=== PATIENT | male | born 1970 | race Caucasian/White ===

== ENCOUNTER 2017-02-27 17:00 | Emergency (ER) | payer MEDICAID, MEDICARE ==
[~2017-02-27] VITALS: Ht 193 cm; Wt 76.0 kg
[~2017-02-27 17:00] MED LIST: CLIN1CAP6 PO
[2017-02-27 17:01] VITALS: BP 117/80; PULSE 104; RESP 16; TEMP 98.6; O2SAT 97
[2017-02-27] MEDS ORDERED: LIDOCAINE HCL 1% 50 ML VIAL INFIL ONE (17:15)
--- NOTE | 2017-02-27 17:18 | PD ---
HPI Chief Complaint: Skin Problem Time Seen by Provider: 17:14 Travel History International Travel<30 days: No Contact w/Intl Traveler<30days: No Traveled to known affect area: No History of Present Illness HPI 46-year-old male presents to the emergency department for evaluation of tender painful lumps to right hand and right lower abdomen. Patient states that the lump on his right hand began 2 days ago and has been getting larger and more painful. States that he is unsure when the lump on his abdomen began, states that he thinks it is an ingrown hair. Denies any discharge or drainage from the sites. States that he has subjective fever yesterday but did not take his temperature. Denies any nausea, vomiting, chills. Denies any history of IV drug use. No other complaints. PFSH Past Medical History Medical History: Denies Significant Hx Diminished Hearing: No Tetanus Vaccination: < 5 Years Past Surgical History Surgical History: No Previous Surgery Social History Alcohol Use: No Tobacco Use: No Substance Use: No Allergies-Medications (Allergen,Severity, Reaction): Coded Allergies: Penicillin (Verified Allergy, Intermediate, rash, 02/27/17) Sulfa (Verified Allergy, Intermediate, RASH, 02/27/17) Reported Meds & Prescriptions Reported Meds & Active Scripts Active Clindamycin (Clindamycin HCl) 150 Mg Cap 300 Mg PO Q6H 10 Days Review of Systems Except as stated in HPI: all other systems reviewed are Neg Physical Exam Narrative GENERAL: Well-nourished and well-developed pleasant patient in no acute distress who is nontoxic appearing. SKIN: Warm and dry. 2 cm in diameter raised fluctuant erythematous mass to dorsal ulnar right hand, no discharge or drainage, no lymphangitis. 1 cm erythematous indurated mass to right lower abdominal wall, no discharge or drainage. No surrounding erythema or warmth. HEAD: Normocephalic and atraumatic. EYES: No injection, drainage, or hyphema noted. PERRLA. EOMI. ENT: No nasal drainage noted. Oropharynx is clear. NECK: Supple and the trachea is midline. CARDIOVASCULAR: Regular rate and rhythm. RESPIRATORY: Breath sounds are equal bilaterally with no accessory muscle use, wheezing, rhonchi, or crackles. GASTROINTESTINAL: Abdomen is soft, non-tender, and nondistended. MUSCULOSKELETAL: No obvious deformities, swelling, cyanosis, or ecchymosis is present throughout the upper and lower extremities. Patient has full range of motion without any signs of neurovascular compromise. NEUROLOGICAL: Awake, alert, and oriented. Normal speech and gait. Cranial nerves are grossly intact. Data Data Last Documented VS Vital Signs Date Time Temp Pulse Resp B/P Pulse Ox O2 Delivery O2 Flow Rate FiO2 02/27/17 17:01 98.6 104 16 117/80 97 Orders Wound Culture And Gram Stain (02/27/17 17:13) Lidocaine 1% Inj (50 Ml) (Xylocaine 1% I (02/27/17 17:15) [facility] Medical Decision Making Medical Screen Exam Complete: Yes Emergency Medical Condition: Yes Differential Diagnosis Abscess versus folliculitis versus cellulitis Narrative Course 46-year-old male presents to the emergency department for evaluation of abscess to right hand and abdominal wall. Patient is afebrile, vital signs are stable. The abscess on his right hand is fluctuant and will be drained. The abscess on his abdomen is hard and indurated and is not amenable to drainage. Patient will be placed on clindamycin. Discussed proper wound care techniques. Advised follow-up with his PCP. Patient verbalizes understanding and agreement with treatment plan. Procedures Procedure Narrative After the risks and benefits were discussed the following procedure was performed: INCISION AND DRAINAGE OF ABSCESS: The area was prepped and was sterilely draped. A subcutaneous wheal of 1 % Xylocaine with a total number 3 mL was used to anesthetize the area. The area was properly anesthetized. A number 11 scalpel was used to make a 1 -cm incision across the area of the abscess. A small amount of purulence was expelled. Cultures were obtained. The abscess was drained an irrigated with normal saline. Sterile dressing applied. Diagnosis Primary Impression: Abscess of right hand Additional Impression: Cutaneous abscess of abdominal wall Referrals: Primary Care Physician Patient Instructions: Abscess (ED), Abscess Incision and Drainage (ED), General Instructions Additional Instructions: Apply warm compresses. Take medication as prescribed with food and a full glass of water. Follow-up with your Primary Care Physician. Return to the ED for any acute worsening of symptoms. Med/Other Pt SpecificInfo: Prescription(s) given Scripts Clindamycin 150 Mg [id number] Mg PO Q6H 10 Days Ref 0 Prov:Alvaro Ferrara MD 02/27/17 Disposition: 01 DISCHARGE HOME Condition: Stable Ivanna Hebert Feb 27, 2017 17:18 Ivanna Hebert Feb 27, 2017 17:18
[2017-02-27] MEDS ORDERED: CLIN1CAP5 PO (17:36)
== END 2017-02-27 17:41 | disposition home or self-care (01) ==
LOC: PHEFT 17:00
DX: L02.511 Cutaneous abscess of right hand (principal); L02.211 Cutaneous abscess of abdominal wall; B95.61 Methicillin susceptible Staphylococcus aureus infection as the cause of diseases classified elsewhere
CPT/HCPCS: 10060; 86403; 87070; 87186

== ENCOUNTER 2017-10-13 19:36 | Emergency (ER) | payer MEDICARE ==
[~2017-10-13] VITALS: Ht 193 cm; Wt 76.6 kg
[~2017-10-13 19:36] MED LIST changes: +CLIN150C14 PO; -CLIN1CAP6 PO
[2017-10-13 19:44] VITALS: BP 106/73; PULSE 110; RESP 16; TEMP 98.7; O2SAT 98
[2017-10-13] MEDS ORDERED: CLIN300C5 PO (20:07)
--- NOTE | 2017-10-13 20:07 | PD ---
HPI Chief Complaint: Bite or Sting Time Seen by Provider: 20:04 Travel History International Travel<30 days: No Contact w/Intl Traveler<30days: No Traveled to known affect area: No History of Present Illness HPI 47-year-old male with no significant medical history presents to emergency department for what he believes are spider bites on his thigh and his left axilla. Patient states he noticed them over the last 3-4 days. He thought that they were initially pimples but then they grew and became more painful. He was able to express purulent drainage from one of them. He did not see any spider or insect. He did not feel a bite. Denies any fever or chills. Denies any other new exposures. No other symptoms to report. PFSH Past Medical History Medical History: Denies Significant Hx Diminished Hearing: No Psychiatric: Yes (Autism) Respiratory: Yes (sinus problems; asthma as child) Tetanus Vaccination: < 5 Years Influenza Vaccination: No Past Surgical History Surgical History: No Previous Surgery Social History Alcohol Use: No Tobacco Use: No Substance Use: No Allergies-Medications (Allergen,Severity, Reaction): Coded Allergies: Sulfa (Sulfonamide Antibiotics) (Verified Allergy, Intermediate, RASH, 10/13/17) penicillin G (Verified Allergy, Intermediate, rash, 10/13/17) Reported Meds & Prescriptions Reported Meds & Active Scripts Active Clindamycin (Clindamycin HCl) 300 Mg Cap 300 Mg PO Q6H 10 Days Clindamycin (Clindamycin HCl) 150 Mg Cap 300 Mg PO Q6H 10 Days Review of Systems Except as stated in HPI: all other systems reviewed are Neg Physical Exam Narrative GENERAL: Well-nourished, well-developed male patient, ambulatory, no acute distress SKIN: Focused skin assessment warm/dry. 2 cm in diameter area of induration on the anterior left thigh proximal to the knee. There is no fluctuation. It is tender to palpate. There is another subcentimeter erythematous papule on the anterior right knee. Erythema, however, extends 10 cm in diameter from this area. It does not encompass the entire left knee. Patient has full flexion and extension of the left knee. There is another subcentimeter papular lesion in the left axilla without any significant erythema or edema. No induration. HEAD: Normocephalic. EYES: No scleral icterus. No injection or drainage. NECK: Supple, trachea midline. No JVD or lymphadenopathy. CARDIOVASCULAR: Tachycardic rate and rhythm without murmurs, gallops, or rubs. RESPIRATORY: Breath sounds equal bilaterally. No accessory muscle use. GASTROINTESTINAL: Abdomen soft, non-tender, nondistended. MUSCULOSKELETAL: No cyanosis, lesions as described above. BACK: Nontender without obvious deformity. No CVA tenderness. Data Data Last Documented VS Vital Signs Date Time Temp Pulse Resp B/P (MAP) Pulse Ox O2 Delivery O2 Flow Rate FiO2 10/13/17 19:44 98.7 110 16 106/73 (84) 98 Orders Orders Clindamycin (Cleocin) (10/13/17 20:15) Ed Discharge Order (10/13/17 20:05) [facility] Medical Decision Making Medical Screen Exam Complete: Yes Emergency Medical Condition: Yes Medical Record Reviewed: Yes Differential Diagnosis Folliculitis versus abscess versus cellulitis versus insect bite Narrative Course 47-year-old male presents to emergency department for evaluation of skin lesions. These are consistent with folliculitis with associated cellulitis. There is no appreciable abscess at this time to drain. I have counseled the patient and he is aware that abscess may develop. He'll be started on oral antibiotics today, first dose given in the emergency department. He agrees to return immediately with any acute worsening symptoms. Diagnosis Primary Impression: Folliculitis Additional Impression: Cellulitis Qualified Codes: L03.116 - Cellulitis of left lower limb Referrals: Primary Care Physician Patient Instructions: Cellulitis (ED), Folliculitis (ED), General Instructions Additional Instructions: Warm compresses to the affected area Do not squeeze the areas Follow-up with your primary care provider Return immediately with any acute worsening symptoms Med/Other Pt SpecificInfo: Prescription(s) given Scripts Clindamycin (Clindamycin) 300 Mg Cap 300 MG PO Q6H for Infection for 10 Days, #40 CAP 0 Refills Prov: Ayleen Remy 10/13/17 Disposition: 01 DISCHARGE HOME Condition: Stable Ayleen Remy Oct 13, 2017 20:07
[2017-10-13] MEDS ORDERED: CLINDAMYCIN 150 MG CAP PO ONE (20:15)
== END 2017-10-13 20:17 | disposition home or self-care (01) ==
LOC: PHEFT 19:36
DX: L73.9 Follicular disorder, unspecified (principal); L03.116 Cellulitis of left lower limb; F84.0 Autistic disorder; Z88.2 Allergy status to sulfonamides; Z88.0 Allergy status to penicillin
CPT/HCPCS: 99283